=== PATIENT | male | born 1945 | race Hispanic/Latino ===

== ENCOUNTER → 2017-12-25 | Outpatient (CLI) | payer OTHER | END | disposition home or self-care (01) | LOC: RAH 09:08 | PROVIDERS: ATTEND Nurse Practitioner Family | DX: R13.10 Dysphagia, unspecified (principal) | CPT/HCPCS: 74220 ==

== ENCOUNTER → 2018-03-28 | Outpatient (CLI) | payer OTHER | END | disposition home or self-care (01) | LOC: RAH 12:47 | PROVIDERS: ATTEND Nurse Practitioner Family | DX: R05 Cough (principal); E03.9 Hypothyroidism, unspecified | CPT/HCPCS: 71046 ==